=== PATIENT | female | born 2000 | race Caucasian/White ===

== ENCOUNTER 2023-10-22 01:04 | Emergency (ER) | payer MEDICAID ==
[~2023-10-22] VITALS: Ht 154.9 cm; Wt 58.4 kg
[2023-10-22 01:09] VITALS: BP 123/77; PULSE 101; RESP 18; TEMP 98; O2SAT 100
[2023-10-22] MEDS ORDERED: ONDANSETRON HCL 4MG TABLET PO ONE (02:00)
== END 2023-10-22 08:37 | disposition left against medical advice (07) ==
LOC: ER 01:04
DX: R51.9 Headache, unspecified (principal); R11.0 Nausea; Z53.21 Procedure and treatment not carried out due to patient leaving prior to being seen by health care provider
CPT/HCPCS: 81025; 99281